=== PATIENT | male | born 1955 | race Caucasian/White ===

== ENCOUNTER → 2021-05-26 15:35 | Outpatient (CLI) | payer MEDICARE, BC, SELFPAY ==
--- NOTE | ~2021-05-26 | XR_ITS ---
XR foot RT min 3V 05/26/2021 16:21 Indication: Right fifth toe pain Procedure: 3 views right foot Comparison: No prior studies for comparison. Findings: There is mild polyarticular osteoarthritis, most advanced at the first MTP joint. There is an old fracture base of the fifth metatarsal with sclerotic margins. There is mild soft tissue swelli ng lateral to this location. No foreign bodies. No acute fracture is identified. Lisfranc joint is in tact. Prominent degenerative calcaneal enthesophytes. No erosive changes. Impression: 1: Mild polyarticular osteoarthritis. Reviewed, dictated and finalized at location A. WAXER Impression: 1: Mild polyarticular osteoarthritis.
== END ==
PROVIDERS: Visit Provider Podiatrist Foot & Ankle Surgery
DX: M79.674 Pain in right toe(s) (principal); M19.071 Primary osteoarthritis, right ankle and foot
CPT/HCPCS: 73630

== ENCOUNTER 2023-08-27 19:21 | Inpatient (IN) | payer MEDICARE, BC, SELFPAY ==
--- NOTE | ~2023-08-27 | CT_ITS ---
EXAMINATION: CT abdomen pelvis w con DATE: 08/28/2023 04:50 INDICATION: Right lower quadrant pain TECHNIQUE: Computed tomography (CT) of the abdomen and pelvis was performed with 100 cc Omnipaque 350 intravenous contrast. The dose-length product was 513.20 mGy-cm. Automated exposure control and iter ative reconstruction technique were employed. COMPARISON: None. FINDINGS: There is dependent atelectasis. Heart size normal. No significant pleural or pericardial ef fusion. No significant vascular abnormality. No lymphadenopathy. There is a thickened appendix measur ing 1.8 cm with surrounding inflammation and fluid, consistent with acute appendicitis. No evidence f or free air or abscess. The liver, spleen, pancreas, adrenal glands and kidneys are unremarkable. Gallbladder is present. No significant vascular abnormality. No lymphadenopathy. Small fat-containing inguinal hernias. No free air or free fluid. Moderate lumbar spondylosis. There is diffuse idiopathic skeletal hyperostosis (DI SH) of the lumbar spine. IMPRESSION: 1. Acute uncomplicated appendicitis. Reviewed, dictated and finalized at location A. MAN
[2023-08-27 19:23] VITALS: BP 158/96; PULSE 112; RESP 15; TEMP 36.6; O2SAT 100
[2023-08-28] VITALS (26 sets, daily range): BP systolic 123–199; BP diastolic 72–105; PULSE 50–95; RESP 11–26; TEMP 36.5–37.4; O2SAT 92–100; BMI 28.8
--- NOTE | 2023-08-28 01:44 | PC.NURSE ---
Pt arrives ambulatory to ED tx room from triage. Pt states that he is here for RLQ pain that started yesterday evening. Now has pain across abd to LLQ. States that on , he was in physical therapy when he was laying on the exercise ball and felt a ripping sensation in RLQ, but did not have any pain afterward. Report nausea and chills, without vomiting.
--- NOTE | 2023-08-28 02:39 | ECG_ITS ---
Measurements Intervals Beauty Rate: 51 P: 60 MT: 213 QRS: -64 QRSD: 112 T: 88 QT: 393 QTc: 363 Interpretive Statements SINUS BRADYCARDIA WITH FIRST DEGREE AV BLOCK INCOMPLETE RIGHT BUNDLE BRANCH BLOCK [90+ ms QRS DURATION, TERMINAL R IN V1/V2, 40+ ms S IN I/aVL/V4/V5/V6] LEFT ANTERIOR FASCICULAR BLOCK [QRS AXIS <= -45, QR IN I, RS IN II] NONSPECIFIC T-WAVE ABNORMALITY ABNORMAL ECG NO PREVIOUS ECG AVAILABLE FOR COMPARISON Electronically Signed On 08-28-2023 14:42:05 INTERLOCKING INSTALLER by Roel Currie M.D.
--- NOTE | 2023-08-28 02:40 | ED.ABDPAIN ---
HPI - Abdominal Pain General Chief Complaint: Abdominal Pain <Mariana Martinez PA-C - Last Filed: 08/28/23 03:44> Stated Complaint: right hip pain <Mariana Martinez PA-C - Last Filed: 08/28/23 03:44> Time Seen by Provider: 08/28/23 01:45 <Mariana Martinez PA-C - Last Filed: 08/28/23 03:44> History of Present Illness HPI narrative: 68-year-old male who was s/p CABG, prior history of kidney stones reports for evaluation for right lower quadrant abdominal pain times 2 days. Patient states 2 days ago, he was doing physical therapy exercise where he had a ball resting on his abdomen. States he started feeling pain in his right abdomen during these exercises. The following day, he began developing send with worsening pain. States it originally started on his right side and flank area and has now progressed to the right lower quadrant. States he had pain like this when a kidney stones many years ago. States he required stenting. He denies nausea vomiting, diarrhea, chest pain or shortness of breath, fever, testicular pain. He does report chills. Denies other prior abdominal surgeries. <Mariana Martinez PA-C - Last Filed: 08/28/23 03:44> Related Data Allergies/Adverse Reactions: Allergies Allergy/AdvReac Type Severity Reaction Status Date / Time No Known Allergies Allergy Verified 08/27/23 19:30 <Mariana Martinez PA-C - Last Filed: 08/28/23 03:44> Review of Systems Review of Systems: CONSTITUTIONAL: See HPI EYES: Denies visual changes, redness, or discharge. ENT: Denies rhinorrhea, congestion, sore throat, or otalgia. CARDIOVASCULAR: Denies chest pain, palpitations, or edema. RESPIRATORY: Denies cough or dyspnea. GASTROINTESTINAL: See HPI GENITOURINARY: See HPI SKIN: Denies rash or itching. MUSCULOSKELETAL: Denies back pain, joint pain, or myalgia. NEUROLOGIC: Denies headache, numbness, or weakness. PSYCHIATRIC: Denies anxiety or depression. <LOPEZ Childress Last Filed: 08/28/23 03:44> Exam Narrative: GENERAL: Well-appearing, well-nourished, and in no acute distress. HEAD: Normocephalic, atraumatic. EYES: PERRLA and EOMI. ENT: Nares clear, no rhinorrhea or epistaxis. Mucous membranes moist. NECK: Supple. CHEST: Clear to auscultation. No respiratory distress. HEART: Regular rate and rhythm. No murmur heard. Normal peripheral pulses. ABDOMEN: Normoactive bowel sounds. Abdomen soft with tenderness in the right lower quadrant with associated guarding. No rebound or rigidity. No CVA tenderness. EXTREMITIES: Normal range of motion. No edema. No tenderness to bilateral hips, full range of motion. SKIN: Warm, dry, no rash. NEURO: No focal deficits. Alert and oriented x3 <Mariana Martinez PA-C - Last Filed: 08/28/23 03:44> Course Vital Signs Vital signs: Vital Signs Temperature 97.8 F 08/27/23 19:23 Pulse Rate 112 H 08/27/23 19:23 Respiratory Rate 15 08/27/23 19:23 Blood Pressure 158/96 H 08/27/23 19:23 Pulse Oximetry 100 08/27/23 19:23 Oxygen Delivery Room Air 08/27/23 19:23 Temperature 97.8 F 08/27/23 19:23 Pulse Rate 70 08/28/23 07:15 Respiratory Rate 20 08/28/23 07:15 Blood Pressure 147/79 H 08/28/23 07:15 Pulse Oximetry 95 08/28/23 07:15 Oxygen Delivery Room Air 08/27/23 19:23 <LOPEZ Childress Last Filed: 08/28/23 03:44> Vital Signs Temperature 97.8 F 08/27/23 19:23 Pulse Rate 112 H 08/27/23 19:23 Respiratory Rate 15 08/27/23 19:23 Blood Pressure 158/96 H 08/27/23 19:23 Pulse Oximetry 100 08/27/23 19:23 Oxygen Delivery Room Air 08/27/23 19:23 Temperature 97.8 F 08/27/23 19:23 Pulse Rate 70 08/28/23 07:15 Respiratory Rate 20 08/28/23 07:15 Blood Pressure 147/79 H 08/28/23 07:15 Pulse Oximetry 95 08/28/23 07:15 Oxygen Delivery Room Air 08/27/23 19:23 <Darius Tolbert MD - Last Filed: 08/28/23 07:52> MDM - Abdominal Pain MDM Narrativ
[2023-08-28] MEDS: ONDANSETRON INJ 4 MG/2 ML VIAL IV PUSH (03:08)
[2023-08-28] MEDS: MORPHINE SULFATE (*CRX) 4 MG/ML INJ IV PUSH (03:12)
[2023-08-28 03:30] LABS: Bacteria Urine None Seen /hpf; Non Pathogenic Casts 0-2; RBC Urine 0-2 /hpf (0-2); Squamous Epithelial Cell Urine None seen /hpf (Few); WBC Urine 0-5 /hpf
[2023-08-28 04:00] LABS: Appearance Urine Turbid (Clear); Bilirubin Urine Negative (Negative); Blood Urine Negative (Negative); Color Urine Dark Yellow (Yellow); Glucose Urine UA Negative (Negative); Ketones Urine Trace mg/dL (Negative); Leukocyte Esterase Ur Negative LEU/UL (Negative); Nitrate Urine Negative (Negative); Protein Urine Negative (Negative); Specific Grav Ur 1.028 (1.001-1.035); Urobilinogen Urine 0.2 mg/dL (<2.0)
[2023-08-28 04:12] LABS: Basophils Percent Auto 0.2 % (0.2-1.2); Hematocrit 42.1 % (42.0-52.0); Hemoglobin 14.3 g/dL (14.0-18.0); Immature Granulocyte Absolute 0.04 K/mm3 (0.00-0.031); Immature Granulocyte Percent A 0.3 % (0-0.5); Lymphocytes Absolute Auto 0.64 K/mm3 (0.9-3.2); Lymphocytes Percent Auto 5.2 % (18.3-44.2); Mean Corpuscular Hemoglobin 32.3 pg (26-34); Mean Platelet Volume 11.5 fl (7.4-10.4); Monocytes Absolute Auto 0.7 K/mm3 (0.1-0.6); Monocytes Percent Auto 5.6 % (2.6-8.5); Neutrophils Percent Auto 88.7 % (45.5-73.1); Platelet Count Result 171 k/mm3 (150-375); Red Blood Count 4.43 M/mm3 (4.6-6.20); Red Cell Distribution Width 12.4 % (11.5-14.5); White Blood Count 12.4 K/mm3 (4.5-10.0)
[2023-08-28 04:16] LABS: Alanine Aminotransferase 20 U/L (6-50); Albumin Level 4.5 g/dL (3.5-5.1); Alkaline Phosphatase 78 U/L (38-126); Anion Gap 10 mmol/L (8-16); Aspartate Amino Transferase 23 U/L (17-59); Bilirubin,Total 0.9 mg/dL (0.2-1.3); Blood Urea Nitrogen 16 mg/dL (9-20); Calcium 9.5 mg/dL (8.4-10.2); Carbon Dioxide 25 mmol/L (22-30); Chloride 99 mmol/L (98-107); Estimated CRCL calculation 93 ml/min; Estimated Glomerular Filt Rate > 60; Glucose 168 mg/dL (65-110); Lipase 49 U/L (23-300); Potassium 4.2 mmol/L (3.4-5.0); Sodium 134 mmol/L (137-145)
[2023-08-28 04:17] LABS: Add Urine Microscopic? YES
[2023-08-28] MEDS: SODIUM CHLORIDE 0.9% IV 2,000 ML 999 ML IV CONT (06:45)
[2023-08-28] MEDS: HYDROmorphone HCL INJ (*CRX) 1 MG/ML SYR 0.5 MG IV PUSH ×2 (06:46→12:13)
--- NOTE | 2023-08-28 07:19 | PC.NURSE ---
Report to OREN Bowling
[2023-08-28] MEDS: metroNIDAZOLE 500 MG/ISO 100ML 500 MG/100 ML BAG 100 MG IVPB ×3 (07:24→22:00)
--- NOTE | 2023-08-28 07:51 | PC.NURSE ---
Pt requests that this RN put in a note about him having a deviated septum
--- NOTE | 2023-08-28 09:07 | PM.IMHP ---
H&P: HPI History of Present Illness Date/Time: 08/28/23 09:07 Chief Complaint: Abdomen pain Narrative: I saw and examined the patient in presents of patient's with patient's permission 68 years old gentleman with history of CABG, and kidney stone present ED with a chief complaint of right lower quadrant pain that started about 2 days ago. Patient started have right lower quadrant pain about 2 days ago, getting worse intermittently. Patient denies chest pain, of breath, denies fever but has chills. patient also denies nausea vomiting diarrhea. Patient came to ED for evaluation. Upon arrival, patient was afebrile, but has tachycardia 112, blood pressure stable, pulse ox 100% on room air. Labs showed leukocytosis 12,400, CT scan showed acute uncomplicated appendicitis. Patient received ceftriaxone and metronidazole in the ED, ER physician also consulted general surgeon. We admit patient for further evaluation and treatment PMFSH Past Medical History Medical History (Updated 08/28/23 @ 13:35 by Elliot Burton MD) BPH (benign prostatic hyperplasia) CAD (coronary artery disease) Gout HTN (hypertension) GRISEL (obstructive sleep apnea) Overweight Surgical History Surgical History (Updated 08/28/23 @ 13:35 by Elliot Burton MD) H/O adenoidectomy History of coronary artery bypass graft Hx of tonsillectomy Family History Family History Father Acute myocardial infarction , Onset Age: 42 Mother , Onset Age: 73 Sibling Acute myocardial infarction, Onset Age: 49 , Onset Age: 59 Sibling Chronic obstructive pulmonary disease Social History Social History Smoking status: Never smoker Alcohol intake: current Drinks per week: 1 Substance use: never Do You Feel Safe in your Home?: Yes Lack of Transportation: No Lack of Food: Never True Current Housing: I Have Housing Concerned About Future Housing: No Difficulty Paying Gas/Electric Bills: No Difficulty Paying for Meds: No Currently Unemployed: No Education: High School Diploma/GED Difficulty w/ Childcare or Family Care: No Spiritual care concerns: No Meds Home Medications and Allergies Home Medications Medication Instructions Recorded Confirmed Type acetaminophen 325 mg tablet 650 mg PO Q4H PRN Mild Pain (Scale 08/28/23 08/28/23 History (Tylenol) Score 1-4) aspirin 81 mg capsule,delayed 81 mg PO DAILY 08/28/23 08/28/23 History release atorvastatin 10 mg tablet 10 mg PO DAILY 08/28/23 08/28/23 History carbamazepine 200 mg tablet 200 mg PO DAILY 08/28/23 08/28/23 History clopidogrel 75 mg tablet 75 mg PO DAILY 08/28/23 08/28/23 History coenzyme Q10 10 mg tablet 10 mg PO DAILY 08/28/23 08/28/23 History colchicine 0.6 mg tablet 0.6 mg PO DAILY 08/28/23 08/28/23 History evolocumab 140 mg/mL subcutaneous See Rx Instructions .Route .COMPLEX 08/28/23 08/28/23 History pen injector (María Elena Love) mecobalamin (vitamin B12) 1,000 1,000 mcg PO DAILY 08/28/23 08/28/23 History mcg chewable tablet fzfgfbuh-ygedktms-ipgho acid 400 1 tablet PO DAILY 08/28/23 08/28/23 History mcg-vit K 20 mcg-lycop 300 mcg tablet (One-A-Day Men's Multivitamin) tamsulosin 0.4 mg capsule 0.4 mg PO DAILY 08/28/23 08/28/23 History Allergies Allergy/AdvReac Type Severity Reaction Status Date / Time No Known Allergies Allergy Verified 08/27/23 19:30 Vital Signs Vital Signs - 24 hr 08/27/23 19:23 08/28/23 05:15 08/28/23 05:49 Temperature 97.8 F Pulse Rate 112 H 67 68 Respiratory Rate 15 17 23 H Blood Pressure 158/96 H 155/79 H Pulse Oximetry 100 95 93 Oxygen Delivery Room Air 08/28/23 07:15 08/28/23 06:01 08/28/23 06:31 Temperature Pulse Rate 70 74 63 Respiratory Rate 20 21 H 20 Blood Pressure 147/79 H 155/79 H 137/87 Pulse Oximetry 95 96 95 Oxygen Delivery
--- NOTE | 2023-08-28 09:33 | ADMGEN ---
This patient, Evan Brewer, was admitted to Medical Room 349-01. Patient/family oriented to hospital policies and general routines including ID bracelet, bed and alarms, visiting hours, pain management, procedures, bathroom and other care routines, personal items, smoking policy, room service/diet, and visiting hours. Information on how to activate the Rapid Response Team has been discussed. Patient/Family are encouraged to report perceived risks to care and to ask questions if they do not understand what they are told or what they should do.
--- NOTE | 2023-08-28 11:53 | PM.CNGS ---
Assessment and Plan Assessment and plan (1) Acute appendicitis: Qualifiers: Acute appendicitis type: with localized peritonitis Appendicitis gangrene presence: unspecified whether gangrene present Appendicitis perforation presence: unspecified whether perforation present Appendicitis abscess presence: unspecified whether abscess present Qualified Code(s): K35.30 - Acute appendicitis with localized peritonitis, without perforation or gangrene Code(s): K35.80 - Unspecified acute appendicitis Status: Acute Assessment and Plan: Have reviewed the CT and discussed the findings with the patient. He has evidence acute appendicitis. His appendix is dilated up to 17 mm. Discussed with patient that this is very large and does pose a risk for perforation. I have discussed medical and surgical treatments with the patient. Is still in significant pain and has guarding on exam. I have recommended proceeding with urgent laparoscopic appendectomy, possible open. I did discuss that there are some increased risks of bleeding which most likely would be minor bleeding but there is a very limited risk of major bleeding due to being long-term anti-platelet therapy. Patient voiced his understanding and is willing to proceed with said risks. I have discussed the procedure, risks, benefits, and alternatives. Questions were answered. (2) CAD (coronary artery disease): Code(s): I25.10 - Atherosclerotic heart disease of [place] coronary artery without angina pectoris Status: Acute Assessment and Plan: Patient underwent coronary artery bypass graft 10 years ago. He states that this has been stable since then and he does not experience any exercise difficulties or angina. 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 He has not taken it for 2 days due to his abdominal symptoms. I discussed with them that there is still some increased risk of bleeding with surgery due to this. History of Present Illness Consult details Consult date: 08/28/23 Reason for consult: other (acute appendicitis) Requesting physician: Darius Tolbert MD Narrative: This is a 68-year-old man who I am asked to see for probable acute appendicitis. He presented to the emergency department last night with right lower quadrant pain that started about 2 days ago. Patient states he has had severe pain that this is worse than the pain he experienced with his open heart surgery. When he presented he was tachycardic but heart rate has come down to normal since being fluid resuscitated. He has never had symptoms like this in the past. He denies a prior history surgery. In the emergency department he was noted to elevated white blood count and CT showed evidence of acute appendicitis. Patient does have history of coronary artery bypass graft 10 years ago but has been stable since then. He denies any angina. He does take clopidogrel and aspirin but has not taken this for the past 2 days due to the pain. Review of Systems Review of Systems: All systems reviewed & are unremarkable except as noted in HPI and below Eyes: Eyes: Denies change in vision ENT: Denies hearing loss, Denies neck pain and Denies sore throat Cardiovascular: Cardiovascular: Denies chest pain and Denies dyspnea Respiratory: Respiratory: Denies cough, Denies dyspnea and Denies wheezing Gastrointestinal: Gastrointestinal: Reports as per HPI Genitourinary: Genitourinary: Denies hematuria and Denies dysuria Musculoskeletal: Musculoskeletal: Denies arthralgias, Denies joint swelling and Denies neck pain Allergic/Immunologic: Allergic/Immunologic: Denies wheezing [facility] Past Medical History Medical History (Updated 08/28/23 @ 11:57 by Harmeet Aguilar DO) BPH (benign prostatic hyperplasia)
--- NOTE | 2023-08-28 11:59 | WPDHPUPDATE1 ---
History and Physical Update Update Date/Time: 08/28/23 11:59 History and Physical has been reviewed, including an updated exam of the patient. There are NO changes in the patient's condition. Risks, benefits, and alternatives have been discussed and questions answered. Patient agrees to proceed with procedure.
[2023-08-28] MEDS: LACTATED RINGERS 1,000 ML 100 ML IV CONT ×2 (12:11→17:51)
--- NOTE | 2023-08-28 13:34 | WPDANESEPPF ---
Anes - Initial Pre Proc Eval Procedure: Operation Date: 08/28/23 14:00 Proposed Procedures p Laparoscopic Appendectomy - Harmeet Aguilar DO Date/Time: 08/28/23 13:34 Surgeon: Justus Mosher MD Pre Op Diagnosis: Appendicitis Patient Data Age: 68 Gender: M Height: 1.8 m Weight: 93.6 kg Last Vital Signs Temp 36.8 C 08/28/23 09:41 Pulse 50 L 08/28/23 09:41 Resp 16 08/28/23 09:41 BP 141/72 H 08/28/23 09:41 Pulse Ox 97 08/28/23 09:41 O2 Del Method Room Air 08/28/23 09:40 Allergies Allergy/AdvReac Type Severity Reaction Status Date / Time No Known Allergies Allergy Verified 08/27/23 19:30 Home Medications Medication Instructions Recorded Confirmed Type acetaminophen 325 mg tablet 650 mg PO Q4H PRN Mild Pain (Scale 08/28/23 08/28/23 History (Tylenol) Score 1-4) aspirin 81 mg capsule,delayed 81 mg PO DAILY 08/28/23 08/28/23 History release atorvastatin 10 mg tablet 10 mg PO DAILY 08/28/23 08/28/23 History carbamazepine 200 mg tablet 200 mg PO DAILY 08/28/23 08/28/23 History clopidogrel 75 mg tablet 75 mg PO DAILY 08/28/23 08/28/23 History coenzyme Q10 10 mg tablet 10 mg PO DAILY 08/28/23 08/28/23 History colchicine 0.6 mg tablet 0.6 mg PO DAILY 08/28/23 08/28/23 History evolocumab 140 mg/mL subcutaneous See Rx Instructions .Route .COMPLEX 08/28/23 08/28/23 History pen injector (Repatha SureCoryick) mecobalamin (vitamin B12) 1,000 1,000 mcg PO DAILY 08/28/23 08/28/23 History mcg chewable tablet jhrmvots-ocltxqfb-hiftw acid 400 1 tablet PO DAILY 08/28/23 08/28/23 History mcg-vit K 20 mcg-lycop 300 mcg tablet (One-A-Day Men's Multivitamin) tamsulosin 0.4 mg capsule 0.4 mg PO DAILY 08/28/23 08/28/23 History Laboratory Tests 08/28/23 08/28/23 02:15 03:13 WBC 12.4 H K/mm3 (4.5-10.0) RBC 4.43 L M/mm3 (4.6-6.20) Hgb 14.3 g/dL (14.0-18.0) Hct 42.1 % (42.0-52.0) MCV 95.0 fl (80-100) MCH 32.3 pg (26-34) MCHC 34.0 g/dl (32-36) RDW 12.4 % (11.5-14.5) Plt Count 171 k/mm3 (150-375) MPV 11.5 H fl (7.4-10.4) Immature Gran % (Auto) 0.3 % (0-0.5) Neut % (Auto) 88.7 H % (45.5-73.1) Lymph % (Auto) 5.2 L % (18.3-44.2) [place] % (Auto) 5.6 % (2.6-8.5) Eos % (Auto) 0.0 % (0-4.4) Baso % (Auto) 0.2 % (0.2-1.2) Lymph # (Auto) 0.64 L K/mm3 (0.9-3.2) Noble # (Auto) 0.7 H K/mm3 (0.1-0.6) Eos # (Auto) 0.0 K/mm3 (0-0.3) Baso # (Auto) 0.0 K/mm3 (0.0-0.1) Abs Immat Gran (auto) 0.04 H K/mm3 (0.00-0.031) Absolute Neuts (auto) 11.0 H K/mm3 (1.3-6.7) Absolute Nucleated RBC 0.0 K/mm3 (0.0-0.012) Nucleated RBC % 0.0 % (0.0-0.2) Sodium 134 L mmol/L (137-145) Potassium 4.2 mmol/L (3.4-5.0) Chloride 99 mmol/L (98-107) Carbon Dioxide 25 mmol/L (22-30) Anion Gap 10 mmol/L (8-16) BUN 16 mg/dL (9-20) Creatinine 0.70 mg/dL (0.7-1.3) Estim Creat Clear Calc 93 ml/min Estimated GFR > 60 (59 - ) Glucose 168 H mg/dL (65-110) Calcium 9.5 mg/dL (8.4-10.2) Total Bilirubin 0.9 mg/dL (0.2-1.3) AST 23 U/L (17-59) ALT 20 U/L (6-50) Alkaline Phosphatase 78 U/L (38-126) Total Protein 7.0 g/dL (6.3-8.2) Albumin 4.5 g/dL (3.5-5.1) Lipase 49 U/L (23-300) Urine Color Dark yellow (Yellow) Urine Appearance Turbid H (Clear) Urine pH 5.0 (5.0-9.0) Ur Specific [place] 1.028 (1.001-1.035) Urine Protein Negative mg/dL (Negative) Urine Glucose (UA) Negative mg/dL (Negative) Urine Ketones Trace H mg/dL (Negative) Ur Blood (Man) Negative (Negative) Urine Nitrate Negative (Negative) Urine Bilirubin Negative (Negative) Urine Urobilinogen 0.2 mg/dL (<2.
[2023-08-28] MEDS: LACTATED RINGERS 1,000 ML 30 ML IV CONT ×2 (14:00→15:10)
[2023-08-28] MEDS: BUPIVACAINE/EPINEPHRINE 0.5% 50 ML VIAL 30 ML INFILTRATE (14:41)
--- NOTE | 2023-08-28 15:06 | W.PM.PROC2 ---
Procedure Note - Detailed Date of Procedure 08/28/23 Pre-op Diagnosis Appendicitis Post-op Diagnosis Other (Acute perforated appendicitis) Procedure Performed Laparoscopic appendectomy Surgeon Harmeet Aguilar, DO Anesthesia General and Local (0.5% bupivicaine with epinephrine) Indications This is a 68-year-old man who presented to the emergency department overnight with complaints of right lower quadrant pain for the past 2 days. He was noted to have an elevated white blood count and CT showed evidence of acute appendicitis. He was admitted for further treatment. The patient is on aspirin and Plavix and increased bleeding risks were discussed with the patient. He was showing peritoneal signs with guarding to palpation and I discussed urgent surgical treatment. Patient was agreeable to proceeding with understanding of increased bleeding risks. I have recommended proceeding with urgent laparoscopic appendectomy, possible open. Findings Laparoscopic appendectomy was performed. The appendix appeared dilated and indurated. There appeared to be an area along the mid appendix that appeared to show signs of necrosis and perforation. There did not appear to be any significant spillage or abscess elsewhere. Most of the infection appeared to be contained a around the appendix in the right lower quadrant. The base of the appendix appeared healthy and viable. The appendix was removed and sent to the lab for pathology. The abdomen was irrigated with about 1 L of sterile saline. Due to his aspirin and Plavix history and some increased mild bleeding along staple line, decision was made to spray Malu powder to rigging helper with hemostasis. Description of Procedure Procedure as well as risks, benefits, and alternatives were explained to the patient. The patient agreed to proceed. Written consent was obtained and placed in chart prior to procedure. The patient was brought back to surgical suite. He was placed supine on operating table. Time-out was done to confirm the patient and procedure. The patient was then intubated by the Anesthesia Department. His abdomen was prepped and draped in sterile fashion using chlorhexidine prep. A 5 mm incision was made just to the left of the patient's umbilicus and a 5 mm Optiview trocar was advanced through the abdominal layers under direct visualization. Once inside the peritoneal cavity, carbon dioxide insufflation was used to create a pneumoperitoneum. The camera was inserted and the abdomen was inspected. No immediate abnormalities were identified. The patient was then placed in slight Trendelenburg position and rotated to the left. A 5 mm incision was made in the suprapubic region in midline and a 5 mm trocar was inserted under direct visualization. A 12 mm incision was made in the left lower quadrant and a 12 mm trocar was inserted under direct visualization. The right lower quadrant was carefully inspected. The cecum was identified and then this was traced back to the appendix. The appendix was identified and grasped at the mesoappendix and lifted anteriorly. Careful blunt dissection was carried out at the base of the appendix through the mesoappendix using a [place] grasper. An Endo-STEVE 45 mm blue load stapler was then advanced across the base of the appendix and clamped and fired. A white reload was then clamped across the mesoappendix and fired. This freed up our appendix completely. It was then placed in an EndoCatch bag and removed through the left lower quadrant port. The staple lines were then inspected. Hemostasis appeared adequate and the staple lines appeared secure. The area was then irrigated with sterile saline. The pelvis was then carefully inspected and irrigated with sterile saline as well and the remainder of the abdomen was carefully inspected. The patient was then flattened out in bed. One final inspection was made around the abdominal cavity and no other abnormalities were seen. The left low
[2023-08-28] MEDS: fentaNYL CITRATE INJ (*CRX) 100 MCG/2 ML VIAL 25 MCG IV PUSH ×5 (15:27→15:57)
[2023-08-28] MEDS: hydrALAZINE HCL 20 MG/ML VIAL 5 MG IV PUSH ×2 (15:45→16:00)
--- NOTE | 2023-08-28 16:07 | SUR.PHASEI ---
1545 patients blood pressure was in the 190s called Zack VELA. Hydralazine was given 1600 patient lap site on lower abdomen has opened and started to bleed. Louis was called and stated to hold pressure for 10min and apply 4x4 if continues to bleed call back.
[2023-08-28] MEDS: hydrALAZINE HCL 20 MG/ML VIAL 10 MG IV PUSH (16:15)
--- NOTE | 2023-08-28 17:35 | PC.NURSE ---
Patient arrived back on unit at 1730 from recovery post op.
[2023-08-28] MEDS: HYDROcodone/acetaminophen (*CRX) 7.5-325 MG TABLET 1 TAB PO (17:50)
[2023-08-28] MEDS: carBAMazepine 200 MG TABLET PO (17:51)
--- NOTE | 2023-08-28 18:12 | PC.NURSE ---
Flagyl and Carbamazepine administered late as patient was in surgery/recovery during scheduled administration time.
[2023-08-28] MEDS: MORPHINE SULFATE (*CRX) 2 MG/ML INJ IV PUSH (20:31)
[2023-08-29] VITALS (9 sets, daily range): BP systolic 136–154; BP diastolic 83–95; PULSE 67–81; RESP 14–20; TEMP 36.7–37; O2SAT 88–100
[2023-08-29] MEDS: HYDROcodone/acetaminophen (*CRX) 7.5-325 MG TABLET 1 TAB PO ×4 (05:22→20:46)
[2023-08-29] MEDS: metroNIDAZOLE 500 MG/ISO 100ML 500 MG/100 ML BAG 100 MG IVPB ×3 (05:22→22:23)
[2023-08-29 06:08] LABS: Hematocrit 40.6 % (42.0-52.0); Hemoglobin 13.2 g/dL (14.0-18.0); Mean Corpuscular HGB Conc 32.5 g/dl (32-36); Mean Corpuscular Volume 98.5 fl (80-100); Mean Platelet Volume 11.5 fl (7.4-10.4); Platelet Count Result 178 k/mm3 (150-375); Red Blood Count 4.12 M/mm3 (4.6-6.20); Red Cell Distribution Width 12.2 % (11.5-14.5); White Blood Count 9.8 K/mm3 (4.5-10.0)
[2023-08-29 06:23] LABS: Anion Gap 10 mmol/L (8-16); Blood Urea Nitrogen 14 mg/dL (9-20); Calcium 8.9 mg/dL (8.4-10.2); Carbon Dioxide 27 mmol/L (22-30); Chloride 97 mmol/L (98-107); Estimated CRCL calculation 93 ml/min; Estimated Glomerular Filt Rate > 60; Glucose 155 mg/dL (65-110); Sodium 134 mmol/L (137-145)
[2023-08-29] MEDS: ASPIRIN 81 MG ENTERIC TABLET PO (09:35)
[2023-08-29] MEDS: cefTRIAXone 2 GM/NS 100 ML 2 GM/100 ML BAG IVPB (09:35)
[2023-08-29] MEDS: TAMSULOSIN HCL 0.4 MG CAPSULE PO (09:35)
[2023-08-29] MEDS: carBAMazepine 200 MG TABLET PO (09:35)
[2023-08-29] MEDS: ENOXAPARIN 40 MG/0.4 ML SYRINGE SUB-Q (09:35)
[2023-08-29] MEDS: ATORVASTATIN 10 MG TABLET PO (09:36)
--- NOTE | 2023-08-29 10:01 | WPDANESPN ---
Anes - Prog Note Post-Op Date/Time: 08/29/23 10:01 Cardiovascular status: normal Respiratory status: normal Airway patency: baseline Mental status: baseline Post-Op hydration status: normal Vital Signs: Last Vital Signs Temp 37.0 C 08/29/23 06:57 Pulse 67 08/29/23 06:57 Resp 20 08/29/23 06:57 BP 153/89 H 08/29/23 06:57 Pulse Ox 88 L 08/29/23 09:30 O2 Del Method Room Air 08/29/23 09:30 O2 Flow Rate 2 08/29/23 07:55 Pain Score (VAS): 08/14 I/O: Intake & Output 08/28/23 08/29/23 08/29/23 23:59 07:59 15:59 Intake Total 800 1200 Output Total 800 Balance 800 400 Laboratory Tests 08/29/23 05:40 08/29/23 05:40 08/29/23 05:40 WBC 9.8 RBC 4.12 L Hgb 13.2 L Hct 40.6 L MCV 98.5 MCH 32.0 MCHC 32.5 RDW 12.2 Plt Count 178 MPV 11.5 H Sodium 134 L Potassium 4.0 Chloride 97 L Carbon Dioxide 27 Anion Gap 10 BUN 14 Creatinine 0.70 Estim Creat Clear Calc 93 Estimated GFR > 60 Glucose 155 H Calcium 8.9 Post-procedural complaints: none Patient Feedback: Patient satisfied with anesthetic care.
--- NOTE | 2023-08-29 13:47 | PM.PNGS ---
Progress Note: A&P Assessment and Plan (1) Acute appendicitis: Qualifiers: Acute appendicitis type: with localized peritonitis Appendicitis abscess presence: without abscess Appendicitis gangrene presence: with gangrene Appendicitis perforation presence: with perforation Qualified Code(s): K35.32 - Acute appendicitis with perforation, localized peritonitis, and gangrene, without abscess Code(s): K35.80 - Unspecified acute appendicitis Status: Acute Assessment and Plan: Increase activity and advance diet as tolerated Continue IV antibiotics Possibly home in the next 1-2 days if improving (2) CAD (coronary artery disease): Code(s): I25.10 - Atherosclerotic heart disease of [place] coronary artery without angina pectoris Status: Acute (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 Hasn't gotten up to walk much. Still requiring supplemental oxygen. Tolerating clear liquids but not much appetite. Exam GI: Inspection: incision (intact with glue) GI Palp: Yes Soft to palpation and Yes Tenderness to palpation present (GI) (RLQ) Objective Data Vital Signs Vital Signs: Vital Signs - 24 hr 08/28/23 15:10 08/28/23 15:25 08/28/23 15:40 Temperature 36.5 C Pulse Rate 75 62 77 Respiratory Rate 22 H 22 H 24 H Blood Pressure 174/93 H 181/90 H 193/105 H Pulse Oximetry 100 97 97 Oxygen Delivery Simple Face Mask Simple Face Mask Simple Face Mask Oxygen Flow Rate 10 10 6 08/28/23 15:55 08/28/23 16:10 08/28/23 16:25 Temperature Pulse Rate 77 82 89 Respiratory Rate 24 H 26 H 21 H Blood Pressure 199/85 H 169/88 H 168/79 H Pulse Oximetry 92 92 100 Oxygen Delivery Nasal Cannula Nasal Cannula Nasal Cannula Oxygen Flow Rate 4 4 4 08/28/23 16:40 08/28/23 16:55 08/28/23 17:11 Temperature Pulse Rate 84 89 95 Respiratory Rate 24 H 24 H 18 Blood Pressure 168/81 H 160/77 H 157/79 H Pulse Oximetry 93 93 94 Oxygen Delivery Nasal Cannula Nasal Cannula Nasal Cannula Oxygen Flow Rate 4 4 4 08/28/23 17:34 08/28/23 17:30 08/28/23 18:08 Temperature 37.0 C 37.0 C Pulse Rate 85 90 Respiratory Rate 18 16 Blood Pressure 153/84 H 153/86 H Pulse Oximetry 98 94 96 Oxygen Delivery Nasal Cannula Oxygen Flow Rate 4 08/28/23 19:02 08/28/23 20:15 08/29/23 00:05 Temperature 37.4 C 36.8 C 36.7 C Pulse Rate 83 84 74 Respiratory Rate 17 18 16 Blood Pressure 149/80 H 169/87 H 154/87 H Pulse Oximetry 95 97 99 Oxygen Delivery Oxygen Flow Rate 08/29/23 07:55 08/29/23 06:57 08/29/23 09:30 Temperature 37.0 C Pulse Rate 67 Respiratory Rate 20 Blood Pressure 153/89 H Pulse Oximetry 96 98 88 L Oxygen Delivery Nasal Cannula Room Air Oxygen Flow Rate 2 08/29/23 10:51 Temperature 36.7 C Pulse Rate 76 Respiratory Rate 15 Blood Pressure 141/95 H Pulse Oximetry 100 Oxygen Delivery Oxygen Flow Rate Intake/Output Intake/Output: Intake & Output 08/26/23 08/27/23 08/28/23 08/29/23 23:59 23:59 23:59 23:59 Intake Total 2950 1300 Output Total 300 800 Balance 2650 500 Meds/Results Medications: Active Medications Generic Name Dose Route Start Last Admin Trade Name Freq PRN Reason Stop Dose Admin Acetaminophen 650 mg 08/28/23 17:12 Acetaminophen 325 Mg Tablet PO Q6H PRN Mild Pain (1-3) or Fever Hydrocodone Bitart/Acetaminophen 1 tab 08/28/23 17:12 Hydrocodone/Acetaminophen (*Crx) 5-325 Mg Tablet PO Q4H PRN Pain Rated 4-6 Hydrocodone Bitart/Acetaminophen 1 tab 08/28/23 17:12 08/29/23 13:23 Hydrocodone/Acetaminophen (*Crx) 7.5-325 Mg Tablet PO 1 tab Q4H PRN Administration Pain Rated 7-10 Aspirin 81 mg 08/29/23 09:00 08/29/23 09:35 Aspirin 81 Mg Enteric
--- NOTE | 2023-08-29 18:08 | PM.IMPN ---
Progress Note: A&P Assessment and Plan (1) Acute appendicitis: Qualifiers: Acute appendicitis type: with localized peritonitis Appendicitis abscess presence: without abscess Appendicitis gangrene presence: with gangrene Appendicitis perforation presence: with perforation Qualified Code(s): K35.32 - Acute appendicitis with perforation, localized peritonitis, and gangrene, without abscess Code(s): K35.80 - Unspecified acute appendicitis Status: Acute (2) CAD (coronary artery disease): Code(s): I25.10 - Atherosclerotic heart disease of [place] coronary artery without angina pectoris Status: Acute Plan Acute appendicitis Abdomen pain past 2 days Patient has leukocytosis upon arrival in the ED, white blood cell [id number] ... Downtrending to [address] shows acute appendicitis Received ceftriaxone 1 g and metronidazole 500 mg once in the ED ... Which is being continued on the floor Keep patient p.o. start fluid resuscitation LR IV Optimize pain management Continue antibiotics ceftriaxone IV and metronidazole IV Patient status post laparoscopic appendectomy 08/28/2023 ... POD# 1 Follow-up closely with General surgery Pain meds p.r.n. as needed DC home in the next 1 or 2 days if stable CAD Patient denies chest pain I reviewed the EKG, it showed sinus rhythm, bradycardia 51, no specific ST-T changes Continue home medication aspirin 81 g p.o., blood with some 5 mg p.o., Lipitor 10 mg daily p.o. ? Patient seen and examined at bedside during my morning rounds ? Collaborated with patient's nurse at the bedside in detail and addressed all concerns ? Labs, electrolytes, radiology, investigations and test results reviewed ? Consult/Nursing/Ancilliary notes on the chart reviewed and appreciated ? Spoke with patient/family at the bedside and answered all the questions that they had Repeat labs in a.m. Electrolyte replacement as per protocol. Patient will be monitored very closely on the floor. Further recommendations as per the hospital course. Time Spent With Patient Time with patient: 15 - 25 minutes Subjective Date/time seen: 08/29/23 18:08 Interval history: Patient lying in bed during my morning rounds. Still complains of some pain at the operative site. Feels tired and fatigued. Review of Systems Review of Systems: 14 systems were reviewed with pertinent positives and negatives per HPI. Except as documented in the HPI/progress notes, all other systems were reviewed and are negative. All systems reviewed & are unremarkable except as noted in HPI and below Exam Narrative: GENERAL: Pleasant, in no acute distress. Well-nourished. - EYES: EOMI. Anicteric. - HENT: Moist mucous membranes. - LUNGS: Clear to auscultation bilaterally, no wheezing, rhonchi, or rales. - CARDIOVASCULAR: Regular rate and rhythm. No murmur. No JVD. - ABDOMEN: Soft, right lower quadrant tenderness, + postop bandage - EXTREMITIES: No edema. Peripheral pulses 2+. Non-tender. - NEUROLOGIC: No focal neurological deficits. CN II-XII grossly intact. - PSYCHIATRIC: Awake, Alert and oriented x 3. Appropriate mood and affect. - SKIN: No rashes or lesions. Warm. - LYMPH: No cervical lymphadenopathy. Objective Data Vital Signs Vital Signs: Vital Signs - 24 hr 08/28/23 19:02 08/28/23 20:15 08/29/23 00:05 Temperature 37.4 C 36.8 C 36.7 C Pulse Rate 83 84 74 Respiratory Rate 17 18 16 Blood Pressure 149/80 H 169/87 H 154/87 H Pulse Oximetry 95 97 99 Oxygen Delivery Oxygen Flow Rate 08/29/23 07:55 08/29/23 06:57 08/29/23 09:30 Temperature 37.0 C Pulse Rate 67 Respiratory Rate 20 Blood Pressure 153/89 H Pulse Oximetry 96 98 88 L Oxygen Delivery Nasal Cannula Room Air Oxygen Flow Rate 2 08/29/23 10:51 08/29/23 14:23 08/29/23 09:35 Temperature 36.7 C 36.9 C Pulse Rate 76 74 Respiratory Rate 15 14 Blood Pressure 141/95 H 136/83 Pulse Oximetry 100 100 94 Oxygen Delivery N
[2023-08-30] MEDS: HYDROcodone/acetaminophen (*CRX) 7.5-325 MG TABLET 1 TAB PO (03:15)
[2023-08-30 03:57] VITALS: BP 150/87; PULSE 69; RESP 18; TEMP 37; O2SAT 97
[2023-08-30] MEDS: metroNIDAZOLE 500 MG/ISO 100ML 500 MG/100 ML BAG 100 MG IVPB ×3 (05:02→22:51)
[2023-08-30] MEDS: MORPHINE SULFATE (*CRX) 2 MG/ML INJ IV PUSH (05:02)
[2023-08-30 05:32] LABS: Hematocrit 30.1 % (42.0-52.0); Mean Corpuscular HGB Conc 33.2 g/dl (32-36); Mean Corpuscular Hemoglobin 31.9 pg (26-34); Mean Corpuscular Volume 96.2 fl (80-100); Platelet Count Result 132 k/mm3 (150-375); Red Blood Count 3.13 M/mm3 (4.6-6.20); Red Cell Distribution Width 11.9 % (11.5-14.5); White Blood Count 5.5 K/mm3 (4.5-10.0)
[2023-08-30 05:55] LABS: Anion Gap 4 mmol/L (8-16); Blood Urea Nitrogen 13 mg/dL (9-20); Calcium 8.3 mg/dL (8.4-10.2); Carbon Dioxide 29 mmol/L (22-30); Chloride 97 mmol/L (98-107); Estimated CRCL calculation 107 ml/min; Estimated Glomerular Filt Rate > 60; Glucose 122 mg/dL (65-110); Sodium 130 mmol/L (137-145)
[2023-08-30 06:20] LABS: Potassium 3.8 mmol/L (3.4-5.0)
[2023-08-30 07:57] VITALS: O2SAT 96
[2023-08-30 08:00] VITALS: O2SAT 92
[2023-08-30 08:10] VITALS: O2SAT 92
--- NOTE | 2023-08-30 09:37 | PM.PNGS ---
Progress Note: A&P Assessment and Plan (1) Acute appendicitis: Qualifiers: Acute appendicitis type: with localized peritonitis Appendicitis abscess presence: without abscess Appendicitis gangrene presence: with gangrene Appendicitis perforation presence: with perforation Qualified Code(s): K35.32 - Acute appendicitis with perforation, localized peritonitis, and gangrene, without abscess Code(s): K35.80 - Unspecified acute appendicitis Status: Acute Assessment and Plan: Advance to full liquids and hopefully regular diet later today if doing well. Will get him up to chair and ambulating in the halls today. Encouraged to try avoiding IV pain medication and taking the [place] with food. Continue IV antibiotics. WBC normal and afebrile. 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 Aguilar. Subjective Subjective Date/Time Seen: 08/30/23 09:37 Post Op day: 2 (Laparoscopic appendectomy) Patient reports: no new complaints, voiding w/o difficulty, flatus, no bowel movement and afebrile Interval history: This is a 68-year-old who presented with abdominal pain and workup significant for acute appendicitis. He had a laparoscopic appendectomy on 08/28/2023 findings of acute perforated appendicitis. Chart reviewed. He is now seen on the medical floor. He is still on clear liquid diet. He does report having some nausea around 3:00 a.m. this morning that has improved without antiemetics. He did receive hydrocodone around the time he was nauseous and this would have been on an empty stomach. He then received IV morphine around 5:00 a.m.. He reports being in bed and only standing to urinate. He has not walked the halls. He is asking to shower. He still feels bloated and reports a poor appetite, but his nausea has improved. No vomiting. He is tolerating clear liquids this morning. Review of Systems Review of Systems: All systems reviewed & are unremarkable except as noted in HPI and below Exam GI: Inspection: distended and incision (intact with glue) GI Palp: Yes Soft to palpation, Yes Tenderness to palpation present (GI) (RLQ) and No Guarding due to palpation present (GI) Auscultation: normal bowel sounds Objective Data Vital Signs Vital Signs: Vital Signs - 24 hr 08/29/23 10:51 08/29/23 14:23 08/29/23 18:59 Temperature 98.1 F 98.4 F 98.2 F Pulse Rate 76 74 81 Respiratory Rate 15 14 15 Blood Pressure 141/95 H 136/83 142/89 H Pulse Oximetry 100 100 99 Oxygen Delivery Oxygen Flow Rate Fraction of Inspired Oxygen 08/29/23 22:28 08/30/23 03:57 08/30/23 07:57 Temperature 98.6 F 98.6 F Pulse Rate 73 69 Respiratory Rate 16 18 Blood Pressure 148/86 H 150/87 H Pulse Oximetry 100 97 96 Oxygen Delivery Nasal Cannula Oxygen Flow Rate 1 Fraction of Inspired Oxygen 08/30/23 08:10 Temperature Pulse Rate Respiratory Rate Blood Pressure Pulse Oximetry 92 Oxygen Delivery Room Air Oxygen Flow Rate Fraction of Inspired Oxygen 21 Intake/Output Intake/Output: Intake & Output 08/27/23 08/28/23 08/29/23 08/30/23 23:59 23:59 23:59 23:59 Intake Total 2950 1780 300 Output Total 300 900 275 Balance 2650 880 25 Meds/Results Medications: Active Medications Generic Name Dose Route Start Last Admin Trade Name Freq PRN Reason Stop Dose Admin Acetaminophen 650 mg 08/28/23 17:12 Acetaminophen 325 Mg Tablet PO Q6H PRN Mild Pain (1-3) or Fever Hydrocodone Bitart/Acetaminophen 1 tab 08/28/23 17:12 Hydrocodone
[2023-08-30] MEDS: cefTRIAXone 2 GM/NS 100 ML 2 GM/100 ML BAG IVPB (09:46)
[2023-08-30] MEDS: carBAMazepine 200 MG TABLET PO (09:47)
[2023-08-30] MEDS: ASPIRIN 81 MG ENTERIC TABLET PO (09:47)
[2023-08-30] MEDS: ENOXAPARIN 40 MG/0.4 ML SYRINGE SUB-Q (09:47)
[2023-08-30] MEDS: TAMSULOSIN HCL 0.4 MG CAPSULE PO (09:47)
[2023-08-30] MEDS: ATORVASTATIN 10 MG TABLET PO (09:47)
--- NOTE | 2023-08-30 18:56 | PM.IMPN ---
Progress Note: A&P Assessment and Plan (1) Acute appendicitis: Qualifiers: Acute appendicitis type: with localized peritonitis Appendicitis abscess presence: without abscess Appendicitis gangrene presence: with gangrene Appendicitis perforation presence: with perforation Qualified Code(s): K35.32 - Acute appendicitis with perforation, localized peritonitis, and gangrene, without abscess Code(s): K35.80 - Unspecified acute appendicitis Status: Acute (2) CAD (coronary artery disease): Code(s): I25.10 - Atherosclerotic heart disease of [place] coronary artery without angina pectoris Status: Acute Plan Acute appendicitis Abdomen pain past 2 days Patient has leukocytosis upon arrival in the ED, white blood cell [id number] ... Downtrending to [address] shows acute appendicitis Received ceftriaxone 1 g and metronidazole 500 mg once in the ED ... Which is being continued on the floor Patient tolerated clear and full liquid diets ... Advance diet as tolerated Optimize pain management Continue antibiotics ceftriaxone IV and metronidazole IV Patient status post laparoscopic appendectomy 08/28/2023 ... POD# 2 Follow-up closely with General surgery Pain meds p.r.n. as needed DC home in the next 1 or 2 days if stable CAD Patient denies chest pain I reviewed the EKG, it showed sinus rhythm, bradycardia 51, no specific ST-T changes Continue home medication aspirin 81 g p.o., blood with some 5 mg p.o., Lipitor 10 mg daily p.o. ? Patient seen and examined at bedside during my morning rounds ? Collaborated with patient's nurse at the bedside in detail and addressed all concerns ? Labs, electrolytes, radiology, investigations and test results reviewed ? Consult/Nursing/Ancilliary notes on the chart reviewed and appreciated ? Spoke with patient/family at the bedside and answered all the questions that they had Repeat labs in a.m. Electrolyte replacement as per protocol. Patient will be monitored very closely on the floor. Further recommendations as per the hospital course. Time Spent With Patient Time with patient: 15 - 25 minutes Subjective Date/time seen: 08/30/23 18:56 Interval history: Patient seen and evaluated at bedside. Complaining of abdominal pain with mild distention. Feels tired and fatigued. Review of Systems Review of Systems: 14 systems were reviewed with pertinent positives and negatives per HPI. Except as documented in the HPI/progress notes, all other systems were reviewed and are negative. All systems reviewed & are unremarkable except as noted in HPI and below Exam Narrative: GENERAL: Pleasant, in no acute distress. Well-nourished. - EYES: EOMI. Anicteric. - HENT: Moist mucous membranes. - LUNGS: Clear to auscultation bilaterally, no wheezing, rhonchi, or rales. - CARDIOVASCULAR: Regular rate and rhythm. No murmur. No JVD. - ABDOMEN: Soft, right lower quadrant tenderness, + postop bandage, +mild abdominal distention - EXTREMITIES: No edema. Peripheral pulses 2+. Non-tender. - NEUROLOGIC: No focal neurological deficits. CN II-XII grossly intact. - PSYCHIATRIC: Awake, Alert and oriented x 3. Appropriate mood and affect. - SKIN: No rashes or lesions. Warm. - LYMPH: No cervical lymphadenopathy. Objective Data Vital Signs Vital Signs: Vital Signs - 24 hr 08/29/23 18:59 08/29/23 22:28 08/30/23 03:57 Temperature 36.8 C 37.0 C 37.0 C Pulse Rate 81 73 69 Respiratory Rate 15 16 18 Blood Pressure 142/89 H 148/86 H 150/87 H Pulse Oximetry 99 100 97 Oxygen Delivery Oxygen Flow Rate Fraction of Inspired Oxygen 08/30/23 07:57 08/30/23 08:10 08/30/23 08:00 Temperature Pulse Rate Respiratory Rate Blood Pressure Pulse Oximetry 96 92 92 Oxygen Delivery Nasal Cannula Room Air Room Air Oxygen Flow Rate 1 Fraction of Inspired Oxygen 24 21 Intake/Output Intake/Output: Intake & Output 08/27/23 08/28/23 08/29/23 08/30/23 23:
[2023-08-30 21:11] VITALS: BP 143/82; PULSE 82; RESP 18; TEMP 37.2; O2SAT 98
[2023-08-31] MEDS: HYDROcodone/acetaminophen (*CRX) 7.5-325 MG TABLET 1 TAB PO ×2 (03:05→21:09)
[2023-08-31] MEDS: metroNIDAZOLE 500 MG/ISO 100ML 500 MG/100 ML BAG 100 MG IVPB ×3 (05:38→21:09)
[2023-08-31 06:29] VITALS: BP 152/84; PULSE 77; RESP 18; TEMP 36.9; O2SAT 90
[2023-08-31] MEDS: carBAMazepine 200 MG TABLET PO (08:09)
[2023-08-31] MEDS: ATORVASTATIN 10 MG TABLET PO (08:09)
[2023-08-31] MEDS: cefTRIAXone 2 GM/NS 100 ML 2 GM/100 ML BAG IVPB (08:09)
[2023-08-31] MEDS: ASPIRIN 81 MG ENTERIC TABLET PO (08:09)
[2023-08-31] MEDS: TAMSULOSIN HCL 0.4 MG CAPSULE PO (08:09)
[2023-08-31] MEDS: ENOXAPARIN 40 MG/0.4 ML SYRINGE SUB-Q (08:09)
[2023-08-31 09:03] LABS: Basophils Percent Auto 0.3 % (0.2-1.2); Hematocrit 31.3 % (42.0-52.0); Hemoglobin 10.3 g/dL (14.0-18.0); Immature Granulocyte Absolute 0.02 K/mm3 (0.00-0.031); Immature Granulocyte Percent A 0.5 % (0-0.5); Lymphocytes Absolute Auto 0.61 K/mm3 (0.9-3.2); Lymphocytes Percent Auto 15.5 % (18.3-44.2); Mean Corpuscular HGB Conc 32.9 g/dl (32-36); Mean Corpuscular Hemoglobin 31.8 pg (26-34); Mean Corpuscular Volume 96.6 fl (80-100); Mean Platelet Volume 10.9 fl (7.4-10.4); Monocytes Absolute Auto 0.4 K/mm3 (0.1-0.6); Monocytes Percent Auto 9.1 % (2.6-8.5); Neutrophils Absolute Auto 2.9 K/mm3 (1.3-6.7); Neutrophils Percent Auto 73.6 % (45.5-73.1); Platelet Count Result 156 k/mm3 (150-375); Red Blood Count 3.24 M/mm3 (4.6-6.20); Red Cell Distribution Width 11.9 % (11.5-14.5); White Blood Count 3.9 K/mm3 (4.5-10.0)
[2023-08-31 09:12] LABS: Alanine Aminotransferase 12 U/L (6-50); Albumin Level 3.3 g/dL (3.5-5.1); Alkaline Phosphatase 57 U/L (38-126); Anion Gap 5 mmol/L (8-16); Aspartate Amino Transferase 20 U/L (17-59); Bilirubin,Total 0.7 mg/dL (0.2-1.3); Blood Urea Nitrogen 11 mg/dL (9-20); Calcium 8.3 mg/dL (8.4-10.2); Carbon Dioxide 28 mmol/L (22-30); Chloride 100 mmol/L (98-107); Estimated CRCL calculation 107 ml/min; Estimated Glomerular Filt Rate > 60; Glucose 114 mg/dL (65-110); Magnesium 1.9 mg/dL (1.6-2.3); Phosphorus 2.3 mg/dL (2.5-4.5); Potassium 3.4 mmol/L (3.4-5.0); Sodium 133 mmol/L (137-145)
[2023-08-31] MEDS: polyethylene glycoL 3350 17 GM POWD.PACK PO (10:37)
--- NOTE | 2023-08-31 12:32 | PCCCNOTE ---
On 08/31/23, the student, [Daija Franco ], provided care and completed [facility] documentation on this patient. I have reviewed the student's documentation and agree with the findings.
--- NOTE | 2023-08-31 12:43 | PM.PNGS ---
Progress Note: A&P Assessment and Plan (1) Acute appendicitis: Qualifiers: Acute appendicitis type: with localized peritonitis Appendicitis abscess presence: without abscess Appendicitis gangrene presence: with gangrene Appendicitis perforation presence: with perforation Qualified Code(s): K35.32 - Acute appendicitis with perforation, localized peritonitis, and gangrene, without abscess Code(s): K35.80 - Unspecified acute appendicitis Status: Acute Assessment and Plan: He has been advanced to a regular diet and tolerating this well. Tolerating activity well. Added Miralax. Okay to discharge on oral antibiotics from a surgical standpoint. Follow-up with Dr. Aguilar in 2 weeks. 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 Aguilar. Subjective Subjective Date/Time Seen: 08/31/23 09:43 Patient reports: no new complaints, feels better, voiding w/o difficulty, flatus, no bowel movement and afebrile Interval history: Patient seen today. He feels he is slowly improving every day. He still has abdominal discomfort related to his bloating, but feels this is slightly better today. He has been walking the halls multiple times yesterday, last night, and this morning. He is passing more flatus. No BM yet. He is tolerating a regular diet and ate his entire tray for breakfast and dinner last night. He reports nausea after he receives his IV antibiotics, but no vomiting. No other complaints at this time. Review of Systems Review of Systems: All systems reviewed & are unremarkable except as noted in HPI and below Exam Const: General: comfortable and no acute distress Orientation/consciousness: patient oriented x3 GI: Inspection: incision (dry and healing well) and other (abdominal distention improved from yesterday) GI Palp: Yes Soft to palpation (softer today), Yes Tenderness to palpation present (GI) (RLQ), No Guarding due to palpation present (GI) and No Rebound tenderness present Auscultation: normal bowel sounds Objective Data Vital Signs Vital Signs: Vital Signs - 24 hr 08/30/23 21:11 08/31/23 06:29 08/31/23 08:07 Temperature 99.0 F 98.4 F Pulse Rate 82 77 Respiratory Rate 18 18 Blood Pressure 143/82 H 152/84 H Pulse Oximetry 98 90 Oxygen Delivery Room Air Intake/Output Intake/Output: Intake & Output 08/28/23 08/29/23 08/30/23 08/31/23 23:59 23:59 23:59 23:59 Intake Total 2950 1880 1920 570 Output Total 300 122 692 3821 Balance 2650 980 1645 605 Meds/Results Medications: Active Medications Generic Name Dose Route Start Last Admin Trade Name Freq PRN Reason Stop Dose Admin Acetaminophen 650 mg 08/28/23 17:12 Acetaminophen 325 Mg Tablet PO Q6H PRN Mild Pain (1-3) or Fever Hydrocodone Bitart/Acetaminophen 1 tab 08/28/23 17:12 Hydrocodone/Acetaminophen (*Crx) 5-325 Mg Tablet PO Q4H PRN Pain Rated 4-6 Hydrocodone Bitart/Acetaminophen 1 tab 08/28/23 17:12 08/31/23 03:05 Hydrocodone/Acetaminophen (*Crx) 7.5-325 Mg Tablet PO 1 tab Q4H PRN Administration Pain Rated 7-10 Aspirin 81 mg 08/29/23 09:00 08/31/23 08:09 Aspirin 81 Mg Enteric Tablet PO 81 mg QAM DEMARCO Administration Atorvastatin Calcium 10 mg 08/29/23 09:00 08/31/23 08:09 Atorvastatin 10 Mg Tablet PO 10 mg DAILY DEMARCO Administration Carbamazepine 200 mg 08/28/23 15:00 08/31/23 08:09 Carbamazepine 200 Mg Tablet PO 200 mg DAILY DEMARCO Administration Enoxaparin Sodium 40 mg 08/29/23 09:00 08/31/23 08:09 Enoxaparin 40 Mg/0.4 Ml Syringe SUB-Q 40 mg DAILY DEMARCO Administration Metronidazole
--- NOTE | 2023-08-31 18:19 | PM.IMPN ---
Progress Note: A&P Assessment and Plan (1) Acute appendicitis: Qualifiers: Acute appendicitis type: with localized peritonitis Appendicitis abscess presence: without abscess Appendicitis gangrene presence: with gangrene Appendicitis perforation presence: with perforation Qualified Code(s): K35.32 - Acute appendicitis with perforation, localized peritonitis, and gangrene, without abscess Code(s): K35.80 - Unspecified acute appendicitis Status: Acute (2) CAD (coronary artery disease): Code(s): I25.10 - Atherosclerotic heart disease of [place] coronary artery without angina pectoris Status: Acute Plan Acute appendicitis Abdomen pain past 2 days Patient has leukocytosis upon arrival in the ED, white blood cell [id number] ... Downtrending to 980, [address] shows acute appendicitis Received ceftriaxone 1 g and metronidazole 500 mg once in the ED ... Which is being continued on the floor Patient tolerated clear and full liquid diets ... Advance diet to heart healthy diet Optimize pain management Continue antibiotics ceftriaxone IV and metronidazole IV Patient status post laparoscopic appendectomy 08/28/2023 ... POD# 3 Follow-up closely with General surgery Pain meds p.r.n. as needed DC home in am on oral antibiotics if he remains stable and improves clinically and symptomatically CAD Patient denies chest pain I reviewed the EKG, it showed sinus rhythm, bradycardia 51, no specific ST-T changes Continue home medication aspirin 81 g p.o., blood with some 5 mg p.o., Lipitor 10 mg daily p.o. ? Patient seen and examined at bedside during my morning rounds ? Collaborated with patient's nurse at the bedside in detail and addressed all concerns ? Labs, electrolytes, radiology, investigations and test results reviewed ? Consult/Nursing/Ancilliary notes on the chart reviewed and appreciated ? Spoke with patient/family at the bedside and answered all the questions that they had Repeat labs in a.m. Electrolyte replacement as per protocol. Patient will be monitored very closely on the floor. Further recommendations as per the hospital course. Time Spent With Patient Time with patient: 15 - 25 minutes Subjective Date/time seen: 08/31/23 18:19 Interval history: Patient is feeling well today. He is ambulating at the bedside and in the hallways. Still complains of some abdominal pain and distention. Review of Systems Review of Systems: 14 systems were reviewed with pertinent positives and negatives per HPI. Except as documented in the HPI/progress notes, all other systems were reviewed and are negative. All systems reviewed & are unremarkable except as noted in HPI and below Exam Narrative: GENERAL: Pleasant, in no acute distress. Well-nourished. - EYES: EOMI. Anicteric. - HENT: Moist mucous membranes. - LUNGS: Clear to auscultation bilaterally, no wheezing, rhonchi, or rales. - CARDIOVASCULAR: Regular rate and rhythm. No murmur. No JVD. - ABDOMEN: Soft, right lower quadrant tenderness, + postop bandage, +mild abdominal distention - EXTREMITIES: No edema. Peripheral pulses 2+. Non-tender. - NEUROLOGIC: No focal neurological deficits. CN II-XII grossly intact. - PSYCHIATRIC: Awake, Alert and oriented x 3. Appropriate mood and affect. - SKIN: No rashes or lesions. Warm. - LYMPH: No cervical lymphadenopathy. Objective Data Vital Signs Vital Signs: Vital Signs - 24 hr 08/30/23 21:11 08/31/23 06:29 08/31/23 08:07 Temperature 37.2 C 36.9 C Pulse Rate 82 77 Respiratory Rate 18 18 Blood Pressure 143/82 H 152/84 H Pulse Oximetry 98 90 Oxygen Delivery Room Air Intake/Output Intake/Output: Intake & Output 08/28/23 08/29/23 08/30/23 08/31/23 23:59 23:59 23:59 23:59 Intake Total 2950 1880 1920 1010 Output Total 300 931 324 8704 Balance 2650 980 1645 -165 Meds/Results Medications: Active Medications Generic Name Dose Route Start Last Admin Trade Name Ruslan
[2023-08-31 22:11] VITALS: BP 136/83; PULSE 70; RESP 20; TEMP 36.8; O2SAT 98
--- NOTE | 2023-09-01 05:22 | PC.NURSE ---
Patient upset this morning about not getting much sleep. Pt says every time he closes his eyes his mind is racing and he cant shut it down. Pt says he is experiencing sleep paralysis throughout the night. Pt refusing iv antibiotic at this time. Pt says he doesn't know what is causing him to feel like this and does not want any more medicine at this time. I explained what antibiotics are used for, common side effects and consequences of not taking them as scheduled. I explained that receiving general anesthesia from surgery, lack of sleep from the hospital environment and taking narcotic pain medications can all cause some delirium. Pt oriented at this time. Pt states understanding.
[2023-09-01 06:00] VITALS: BP 158/79; PULSE 50; RESP 18; TEMP 36.5; O2SAT 97
[2023-09-01] MEDS: TAMSULOSIN HCL 0.4 MG CAPSULE PO (08:22)
[2023-09-01] MEDS: carBAMazepine 200 MG TABLET PO (08:22)
[2023-09-01] MEDS: ATORVASTATIN 10 MG TABLET PO (08:22)
[2023-09-01] MEDS: ASPIRIN 81 MG ENTERIC TABLET PO (08:22)
[2023-09-01] MEDS: ENOXAPARIN 40 MG/0.4 ML SYRINGE SUB-Q (08:22)
[2023-09-01] MEDS: cefTRIAXone 2 GM/NS 100 ML 2 GM/100 ML BAG IVPB (09:50)
--- NOTE | 2023-09-01 10:12 | PM.PNGS ---
Progress Note: A&P Assessment and Plan (1) Acute appendicitis: Qualifiers: Acute appendicitis type: with localized peritonitis Appendicitis abscess presence: without abscess Appendicitis gangrene presence: with gangrene Appendicitis perforation presence: with perforation Qualified Code(s): K35.32 - Acute appendicitis with perforation, localized peritonitis, and gangrene, without abscess Code(s): K35.80 - Unspecified acute appendicitis Status: Acute Assessment and Plan: He has been advanced to a regular diet and tolerating this well. Tolerating activity well. Added Miralax. Okay to discharge on oral antibiotics from a surgical standpoint. Follow-up with Dr. Aguilar in 2 weeks. 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 Bowels moving. Pain minimal. Exam GI: Inspection: incision (intact with glue) GI Palp: Yes Soft to palpation, No Tenderness to palpation present (GI) and No Guarding due to palpation present (GI) Objective Data Vital Signs Vital Signs: Vital Signs - 24 hr 08/31/23 22:11 09/01/23 06:00 Temperature 36.8 C 36.5 C Pulse Rate 70 50 L Respiratory Rate 20 18 Blood Pressure 136/83 158/79 H Pulse Oximetry 98 97 Intake/Output Intake/Output: Intake & Output 08/29/23 08/30/23 08/31/23 09/01/23 23:59 23:59 23:59 23:59 Intake Total 1880 1920 1350 940 Output Total 377 057 6578 Balance 980 1645 175 940 Meds/Results Medications: Active Medications Generic Name Dose Route Start Last Admin Trade Name Freq PRN Reason Stop Dose Admin Acetaminophen 650 mg 08/28/23 17:12 Acetaminophen 325 Mg Tablet PO Q6H PRN Mild Pain (1-3) or Fever Hydrocodone Bitart/Acetaminophen 1 tab 08/28/23 17:12 Hydrocodone/Acetaminophen (*Crx) 5-325 Mg Tablet PO Q4H PRN Pain Rated 4-6 Hydrocodone Bitart/Acetaminophen 1 tab 08/28/23 17:12 08/31/23 21:09 Hydrocodone/Acetaminophen (*Crx) 7.5-325 Mg Tablet PO 1 tab Q4H PRN Administration Pain Rated 7-10 Aspirin 81 mg 08/29/23 09:00 09/01/23 08:22 Aspirin 81 Mg Enteric Tablet PO 81 mg QAM DEMARCO Administration Atorvastatin Calcium 10 mg 08/29/23 09:00 09/01/23 08:22 Atorvastatin 10 Mg Tablet PO 10 mg DAILY DEMARCO Administration Carbamazepine 200 mg 08/28/23 15:00 09/01/23 08:22 Carbamazepine 200 Mg Tablet PO 200 mg DAILY DEMARCO Administration Enoxaparin Sodium 40 mg 08/29/23 09:00 09/01/23 08:22 Enoxaparin 40 Mg/0.4 Ml Syringe SUB-Q 40 mg DAILY DEMARCO Administration Metronidazole 500 mg in 100 mls @ 100 mls/hr 08/28/23 14:00 09/01/23 05:57 Flagyl 500 Mg/Iso Soln 100 Ml IVPB Not Given Q8H [facility] Ceftriaxone Sodium 2 gm in 100 mls @ 200 mls/hr 08/29/23 09:00 08/31/23 08:39 Rocephin 2 Gm/Ns 100 Ml IVPB Infused Q24H [facility] Infusion Morphine Sulfate 2 mg 08/28/23 17:12 08/30/23 05:02 Morphine Sulfate (*Crx) 2 Mg/Ml Inj IV PUSH 2 mg Q2H PRN Administration Pain Rated 4-6 Morphine Sulfate 4 mg 08/28/23 17:12 Morphine Sulfate (*Crx) 4 Mg/Ml Inj IV PUSH Q2H PRN Pain Rated 7-10 Naloxone HCl 0.1 mg 08/28/23 17:12 Naloxone Hcl 0.4 Mg/Ml Vial IV PUSH Q2M PRN Opiate Reversal Ondansetron HCl 4 mg 08/28/23 17:12 Ondansetron Inj 4 Mg/2 Ml Vial IV PUSH Q4H PRN Nausea And Vomiting Tamsulosin HCl 0.4 mg 08/29/23 09:00 09/01/23 08:22 Tamsulosin Hcl 0.4 Mg Capsule PO 0.4 mg DAILY DEMARCO Administration Radiology Results: ITS Impressions Abdomen/Pel
--- NOTE | 2023-09-01 12:00 | PM.DS ---
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 Status: Acute (3) Acute appendicitis: Qualifiers: Acute appendicitis type: with localized peritonitis Appendicitis abscess presence: without abscess Appendicitis gangrene presence: with gangrene Appendicitis perforation presence: with perforation Qualified Code(s): K35.32 - Acute appendicitis with perforation, localized peritonitis, and gangrene, without abscess Code(s): K35.80 - Unspecified acute appendicitis Status: Acute (4) Perforated appendix: Code(s): K35.32 - Acute appendicitis with perforation, localized peritonitis, and gangrene, without abscess Status: Acute (5) Abdominal distension: Code(s): R14.0 - Abdominal distension (gaseous) Status: Acute DS: Summary Hospital Course Reason for hospitalization: Patient admitting with worsening right lower quadrant abdominal pain Hospital Course: H&P: HPI History of Present Illness Date/Time: 08/28/23? 09:07 Chief Complaint: Abdomen pain Narrative: I saw and examined the patient in presents of patient's with patient's permission 68 years old gentleman with history of CABG, and kidney stone present ED with a chief complaint of right lower quadrant pain that started about 2 days ago.? Patient started have right lower quadrant pain about 2 days ago, getting worse intermittently.? Patient denies chest pain, of breath, denies fever but has chills.? patient also denies nausea vomiting diarrhea.? Patient came to ED for evaluation.? Upon arrival, patient was afebrile, but has tachycardia 112, blood pressure stable, pulse ox 100% on room air.? Labs showed leukocytosis 12,400, CT scan showed acute uncomplicated appendicitis.? Patient received ceftriaxone and metronidazole in the ED, ER physician also consulted general surgeon.? We admit patient for further evaluation and treatment HOSPITAL COURSE ... Date of Admission - 08/31/2023: Assessment and Plan (1) Acute appendicitis: ?Qualifiers: ?Acute appendicitis type:?with localized peritonitis??Appendicitis abscess presence:?without abscess??Appendicitis gangrene presence:?with gangrene??Appendicitis perforation presence:?with perforation? Qualified Code(s):?K35.32 - Acute appendicitis with perforation, localized peritonitis, and gangrene, without abscess ?Code(s): K35.80 - Unspecified acute appendicitis ?Status:?Acute (2) CAD (coronary artery disease): ?Code(s): I25.10 - Atherosclerotic heart disease of [place] coronary artery without angina pectoris ?Status:?Acute Plan Acute appendicitis Abdomen pain past 2 days Patient has leukocytosis upon arrival in the ED, white blood cell [id number] ...? Downtrending to 980, [address] shows acute appendicitis Received ceftriaxone 1 g and metronidazole 500 mg once in the ED ...? Which is being continued on the floor Patient tolerated clear and full liquid diets ...? Advance diet to heart healthy diet Optimize pain management Continue antibiotics ceftriaxone IV and metronidazole IV Patient status post laparoscopic appendectomy 08/28/2023 ... POD# 3 Follow-up closely with General surgery Pain meds p.r.n. as needed DC home in am on oral antibiotics if he remains stable and improves clinically and symptomatically CAD Patient denies chest pa
== END 2023-09-01 13:30 | disposition home or self-care (01) | DRG 399 ==
LOC: ANHED 08-28 06:34 → ANH3MEDSUR 08-28 08:38 → ANH3MED 08-28 08:52
PROVIDERS: Surgery; Admitting Provider Hospitalist; Emergency Provider Physician Assistant; PCP Internal Medicine; Visit Provider Family Medicine
PROC: 0DTJ4ZZ Resection of Appendix, Percutaneous Endoscopic Approach (ICD-10-PCS; CPT 44970; principal; 2023-08-28 14:00)
DX: K35.32 Acute appendicitis with perforation, localized peritonitis, and gangrene, without abscess (principal); I25.10 Atherosclerotic heart disease of native coronary artery without angina pectoris; N40.0 Benign prostatic hyperplasia without lower urinary tract symptoms; I10 Essential (primary) hypertension; G47.33 Obstructive sleep apnea (adult) (pediatric); Z95.1 Presence of aortocoronary bypass graft; Z79.02 Long term (current) use of antithrombotics/antiplatelets; Z87.442 Personal history of urinary calculi
CPT/HCPCS: 36415; 74177; 80048; 80053; 81001; 83690; 83735; 84100; 85025; 85027; 88304; 93005; 96365; 96367; 96375; 99285; A9270; J0360; J0696; J1170; J1650; J1836; J2250; J2270; J2405; J3010; J7030; J7120; Q9967

== ENCOUNTER 2023-11-22 12:20 | Outpatient (CLI) | payer MEDICARE, BC, SELFPAY ==
--- NOTE | ~2023-11-22 | XR_ITS ---
XR thoracic spine 2V DATE: 11/22/2023 12:55 INDICATION: Low back pain TECHNIQUE: AP, lateral views COMPARISON: None FINDINGS: Status post sternotomy. Diffuse osteopenia. Diffuse hepatic skeletal hyperostosis of the thoracic spine. No thoracic spine fracture or dislocatio n or bone destruction is evident. The thoracic pedicles appear intact. No paraspinal soft tissue thic kening. 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
--- NOTE | ~2023-11-22 | XR_ITS ---
XR lumbar spine 2-3V DATE: 11/22/2023 12:55 INDICATION: Low back pain TECHNIQUE: AP, lateral, cone-down lateral lumbosacral views COMPARISON: August 28, 2023 CT abdomen pelvis FINDINGS: There is evidence of a recent mild anterior wedge compression fracture deformity of L1, not present on August 28, 2023 CT abdomen pelvis examination. No other lumbar spine fracture is evident. Diffuse hepatocellular hyperostosis of the lumbar spine. Degenerative change of the lumbar apophyseal joints, especially at L4-5 and L5-S1. The lumbar pedicles are intact. Sacroiliac joints are unremarkable. IMPRESSION: Recent mild anterior wedge compression fracture of L1 Reviewed, dictated and finalized at location B.
--- NOTE | ~2023-11-22 | XR_ITS ---
XR sacrum coccyx min 2V DATE: 11/22/2023 12:56 INDICATION: Low back pain TECHNIQUE: AP, angled AP and lateral view COMPARISON: August 28, 2023 CT abdomen pelvis FINDINGS: The pubic symphysis and sacral iliac joints are intact. No sacral fracture or bone destruct ion is evident. Bilateral hip osteoarthritis. IMPRESSION: Bilateral hip osteoarthritis Reviewed, dictated and finalized at location B.
== END 2023-11-22 12:21 ==
PROVIDERS: PCP Internal Medicine; Visit Provider Internal Medicine
DX: M16.0 Bilateral primary osteoarthritis of hip (principal); S32.010D Wedge compression fracture of first lumbar vertebra, subsequent encounter for fracture with routine healing; M48.14 Ankylosing hyperostosis [Forestier], thoracic region; X58.XXXD Exposure to other specified factors, subsequent encounter
CPT/HCPCS: 72070; 72100; 72220

== ENCOUNTER 2024-01-21 16:49 | Emergency (ER) | payer MEDICARE, BC, SELFPAY ==
--- NOTE | ~2024-01-21 | XR_ITS ---
XR toe 2nd LT min 2V Ordering provider: Jo Steele PA-C History: . kicked 2nd toe yesterday, toe swollen and bruised . Comparison: None. FINDINGS: BONES: Lucency is seen at the base of the distal phalanx of the second toe laterally which may indica te a fracture. JOINT SPACES: Osteophytes are seen in the distal interphalangeal joints suggestive of osteoarthritic changes. SOFT TISSUES: Soft tissue swelling over the distal phalanx of the second toe. IMPRESSION: Highly suggestive fracture in the lateral base of the distal phalanx of the second toe. Reviewed, dictated and finalized at location A. IMPRESSION: Highly suggestive fracture in the lateral base of the distal phalanx of the sec ond toe.
[2024-01-21 16:54] VITALS: BP 157/93; PULSE 72; RESP 16; TEMP 36.5; O2SAT 98
--- NOTE | 2024-01-21 18:11 | ED.LOWEXIN ---
HPI - Extremity Injury (Lower) General Chief Complaint: Extremity Injury, Lower Stated Complaint: L toe injury Time Seen by Provider: 01/21/24 17:12 Source: patient Mode of arrival: ambulatory Limitations: no limitations History of Present Illness HPI Narrative: This is a 68-year-old male that presents to the emergency department for injury to the left 2nd toe. Sustained just prior to arrival. Reports he accidentally kicked a pole. Reports bruising and pain to the area. Reports decreased range of motion due to pain. Reports a superficial abrasion to the toe. He is not up-to-date on tetanus vaccination. Denies numbness. Related Data Home Medications Medication Instructions Recorded Confirmed acetaminophen 325 mg tablet 650 mg PO Q4H PRN Mild Pain (Scale 08/28/23 09/20/23 (Tylenol) Score 1-4) aspirin 81 mg capsule,delayed 81 mg PO DAILY 08/28/23 09/20/23 release atorvastatin 10 mg tablet 10 mg PO DAILY 08/28/23 09/20/23 carbamazepine 200 mg tablet 200 mg PO DAILY 08/28/23 09/20/23 clopidogrel 75 mg tablet 75 mg PO DAILY 08/28/23 09/20/23 coenzyme Q10 10 mg tablet 10 mg PO DAILY 08/28/23 09/20/23 colchicine 0.6 mg tablet 0.6 mg PO DAILY 08/28/23 09/20/23 evolocumab 140 mg/mL subcutaneous See Rx Instructions .Route .COMPLEX 08/28/23 09/20/23 pen injector (Repjaviera Ligiaick) mecobalamin (vitamin B12) 1,000 1,000 mcg PO DAILY 08/28/23 09/20/23 mcg chewable tablet tjgqajum-vjstdqdv-ouekq acid 400 1 tablet PO DAILY 08/28/23 09/20/23 mcg-vit K 20 mcg-lycop 300 mcg tablet (One-A-Day Men's Multivitamin) tamsulosin 0.4 mg capsule 0.4 mg PO DAILY 08/28/23 09/20/23 Allergies Allergy/AdvReac Type Severity Reaction Status Date / Time No Known Allergies Allergy Verified 09/17/23 09:06 Review of Systems Review of Systems: CONSTITUTIONAL: Denies fever, SKIN: Reports abrasion MUSCULOSKELETAL: Reports joint pain, and myalgia. NEUROLOGIC: Denies numbness All systems reviewed & are unremarkable except as noted in HPI and below PMFSH Past Medical History Medical History BPH (benign prostatic hyperplasia) CAD (coronary artery disease) Gout HTN (hypertension) GRISEL (obstructive sleep apnea) Overweight Surgical History Surgical History (Updated 09/17/23 @ 09:07 by Flores Das CMA) H/O adenoidectomy History of coronary artery bypass graft History of laparoscopic appendectomy Harmeet Aguilar, DO 08/28/23 Hx of tonsillectomy Family History Family History Father Acute myocardial infarction , Onset Age: 42 Mother , Onset Age: 73 Sibling Acute myocardial infarction, Onset Age: 49 , Onset Age: 59 Sibling Chronic obstructive pulmonary disease Social History Social History Smoking status: Never smoker Alcohol intake: current Drinks per week: 1 Substance use: never Do You Feel Safe in your Home?: Yes Lack of Transportation: No Lack of Food: Never True Current Housing: I Have Housing Concerned About Future Housing: No Difficulty Paying Gas/Electric Bills: No Difficulty Paying for Meds: No Currently Unemployed: No Education: High School Diploma/GED Difficulty w/ Childcare or Family Care: No Spiritual care concerns: No Exam Narrative: GENERAL: Well-appearing, well-nourished, and in no acute distress. HEAD: Normocephalic, atraumatic. EYES: EOMI. EXTREMITIES: Decreased active range of motion in the left 2nd toe due to pain with edema and bruising. Superficial abrasion over the distal phalanx dorsal surface. Normal DP pulse. Normal sensation SKIN: Warm, dry, no rash. NEURO: No focal deficits. Alert and oriented x3. PSYCH: Normal mood and affect Course Course Emergency Course: Patient and family updated on workup and agree with plan of care Vital Signs
[2024-01-21] MEDS: TETANUS,DIPHTHERIA,AC PERTUSSIS ADULT (0.5 ML) BOOSTRIX IM (18:38)
[2024-01-21 18:58] VITALS: BP 137/82; PULSE 76; RESP 18; TEMP 37.1; O2SAT 100
== END 2024-01-21 18:50 | disposition home or self-care (01) ==
PROVIDERS: Emergency Provider Physician Assistant; PCP Internal Medicine
DX: S92.502A Displaced unspecified fracture of left lesser toe(s), initial encounter for closed fracture (principal); I25.10 Atherosclerotic heart disease of native coronary artery without angina pectoris; I10 Essential (primary) hypertension; Z23 Encounter for immunization; W22.09XA Striking against other stationary object, initial encounter
CPT/HCPCS: 73660; 90471; 90715; 99284

== ENCOUNTER 2025-01-01 10:02 | Outpatient (CLI) | payer MEDICARE, BC, SELFPAY ==
--- NOTE | ~2025-01-01 | XR_ITS ---
AP and lateral views of the right tibia/fibula Clinical History: Injury Findings: No acute fracture or dislocation is seen. Osseous alignment is anatomic. Joint spaces are p reserved without significant erosive or degenerative change. Soft tissues are unremarkable. Impression: No acute abnormality. Reviewed, dictated and finalized at [facility]. Impression: No acute abnormality.
== END 2025-01-01 10:03 | disposition home or self-care (01) ==
LOC: MICIMG 10:04
PROVIDERS: PCP Internal Medicine; Visit Provider Internal Medicine
DX: S89.91XA Unspecified injury of right lower leg, initial encounter (principal); X58.XXXA Exposure to other specified factors, initial encounter
CPT/HCPCS: 73590

== ENCOUNTER 2025-01-30 13:54 | Outpatient (CLI) | payer MEDICARE, BC, SELFPAY ==
--- NOTE | ~2025-01-30 | XR_ITS ---
[[id number] ] INDICATION: Right rib pain TECHNIQUE: Frontal projection of the upper right ribs, frontal projection of the lower right ribs, ob lique projection of all the right ribs, frontal inspiratory chest x-ray for interpretation. FINDINGS: There are no displaced rib fractures identified. There are no soft tissue abnormality see n. The lungs are clear. Status post median sternotomy for CABG. There is thoracic and lumbar spondy losis. IMPRESSION: 1:No acute displaced rib fractures. Reviewed, dictated and finalized at location B.
== END 2025-01-30 13:55 | disposition home or self-care (01) ==
PROVIDERS: PCP Internal Medicine; Visit Provider Internal Medicine
DX: R07.89 Other chest pain (principal)
CPT/HCPCS: 71101